=== PATIENT | female | born 1940 | race Caucasian/White ===

== ENCOUNTER 2017-04-24 20:33 | Inpatient (IN) | payer MEDICARE ==
[2017-04-24] MEDS ORDERED: diphenhydrAMINE 50 MG/ML VIAL ONE (21:24)
[2017-04-24] MEDS ORDERED: Metoclopramide HCl 10 MG/2 ML VIAL ONE (21:24)
--- NOTE | 2017-04-24 22:01 | RAD ---
AP VIEW OF THE CHEST 04/24/17 INDICATION: Chest pain and heaviness. IMPRESSION: No acute cardiopulmonary abnormality. Examination is not appreciably changed from the comparison date d 05/01/12. POS: [facility]
[2017-04-24 22:27] LABS: Band 12 % (5-11); Hematocrit 39.2 % (36.0-47.0); Mean Platelet Volume 7.5 fL (7.4-10.4); Neutrophil 71 % (42-75); Red Blood Cell (RBC) Count 4.67 mill/uL (4.20-5.40); White Blood Cell (WBC) Count 12.6 thou/uL (4.8-10.8)
[2017-04-24 22:32] LABS: Lactic Acid - Sepsis 1.5 mmol/L (0.5-2.2)
[2017-04-24 22:39] LABS: ALT (SGPT) 63 U/L (8-55); AST (SGOT) 115 U/L (5-34); Alkaline Phosphatase 191 U/L (40-150); Anion Gap 14 mmol/L (10-20); BUN (Urea Nitrogen) 21 mg/dL (9.8-20.1); Bilirubin, Total 1.1 mg/dL (0.2-1.2); CK (CPK) 22 U/L (29-168); Calc. Creatinine Clearance 0 mL/min (70-130); Calcium 8.8 mg/dL (7.8-10.44); Carbon Dioxide 22 mmol/L (23-31); Chloride 97 mmol/L (98-107); Estimated GFR-MDRD 55; Globulin 3.6 g/dL (2.4-3.5); Lipase 4 U/L (8-78); Protein, Total 6.8 g/dL (6.0-8.3)
[2017-04-24 22:41] LABS: Troponin I Less than 0.010 ng/mL (< 0.028)
[2017-04-24 23:44] LABS: Bilirubin Small (Negative); Blood, Urine Moderate (Negative); Glucose, Urine (Dipstick) Negative (Negative); Ketone, Urine Negative (Negative); Nitrite Negative (Negative); Protein, Urine (Dipstick) 30 mg/dL (Neg-Trace)
[2017-04-24] MEDS ORDERED: Azithromycin 500 MG VIAL ONE (23:45)
[2017-04-24 23:47] LABS: Bacteria/HPF 4+ HPF (None Seen); Renal Epithelial 0-3 HPF (0-3); Squamous Epithelial 0-3 HPF (0-3); WBC/HPF 21-50 HPF (0-3)
[2017-04-25 02:34] VITALS: BMI 34.6
[2017-04-25] MEDS ORDERED: Senokot 8.6 MG TAB PO PRN (03:07)
[2017-04-25] MEDS ORDERED: Ondansetron HCl/PF 4 MG/2 ML Vial IVP PRN (03:07)
[2017-04-25] MEDS ORDERED: Ondansetron ODT 4 MG TAB PO PRN (03:07)
[2017-04-25] MEDS ORDERED: Nitroglycerin 0.4 MG TAB (25 Tab Bottle) PO PRN (03:07)
--- NOTE | 2017-04-25 04:04 | HP ---
DATE OF ADMISSION: 04/24/2017 CHIEF COMPLAINT: Chest discomfort with generalized weakness of 2 weeks' duration. PRIMARY CARE PHYSICIAN: Charly Tompkins MD HISTORY OF PRESENT ILLNESS: The patient is a 76-year-old female with COPD, hyperlipidemia, and depre ssion who presented to the emergency room with above complaints. Over the last two weeks, the patient developed gradual worsening of chest discomfort that was pressur e-like, without any aggravating or relieving factor. It was more or less constant. She denies any a ssociated lightheadedness, dizziness, palpitations, nausea, or vomiting. Over the last two weeks, the patient also has generalized weakness with fatigue. She has also lost h er appetite. She has some urinary urgency; however, denies any hematuria or dysuria. She also has s ome frontal headache that is intermittent. No double vision, blurring of vision, facial asymmetry, w eakness, numbness of any of the extremities reported. In the emergency room, initial vital signs showed temperature 99.8, respirations 20, pulse of 90 with blood pressure of 145/70. O2 saturation was 94% on room air. EKG showed sinus rhythm with left axi s deviation without significant ST-T wave changes. Chest x-ray was negative for infiltrate. Her CBC showed WBC of 12.6 with 12% bandemia. Sodium was 129 with abnormal LFTs. Urinalysis showed 21-50 w bc's with 4+ bacteria. Urine and blood cultures were sent. She received Rocephin, azithromycin, Reg mono, Benadryl with IV fluids in the emergency room. PAST MEDICAL HISTORY: 1. Chronic obstructive pulmonary disease. 2. Hyperlipidemia, not tolerating statins. 3. Depression. 4. Obesity with a BMI of 34.6. PAST SURGICAL HISTORY: 1. Cholecystectomy. 2. ERCP. 3. Partial hysterectomy in 1965. 4. Colonoscopy in 2008. 5. Left shoulder surgery in 2011. 6. EGD and colonoscopy in 2012. 7. Left breast lumpectomy in 1965. ALLERGIES: The patient cannot tolerate STATINS due to myalgias, ZETIA causes myalgias. She cannot t olerate CODEINE. MANDY causes headache. CURRENT HOME MEDICATIONS: Cetirizine 10 mg daily, Lexapro 20 mg daily, AZO Bladder Control daily. SOCIAL HISTORY: Patient is a former smoker, quit in 1975. No alcohol or drug use. She is retired. FAMILY HISTORY: Father with prostate cancer. Mother with ALS. One family member with lung cancer. Diabetes runs in her family. One sister with malignancy. REVIEW OF SYSTEMS: The following complete review of systems was negative, unless otherwise mentioned in the HPI or below: Constitutional: Weight loss or gain, ability to conduct usual activities. Sk in: Rash, itching. Eyes: Double vision, pain. ENT/Mouth: Nose bleeding, neck stiffness, pain, te nderness. Cardiovascular: Palpitations, dyspnea on exertion, orthopnea. Respiratory: Shortness of breath, wheezing, cough, hemoptysis, fever or night sweats. Gastrointestinal: Poor appetite, abdom inal pain, heartburn, nausea, vomiting, constipation, or diarrhea. Genitourinary: Urgency, frequenc y, dysuria, nocturia. Musculoskeletal: Pain, swelling. Neurologic/Psychiatric: Anxiety, depressio n. Allergy/Immunologic: Skin rash, bleeding tendency. PHYSICAL EXAMINATION: VITAL SIGNS: As discussed above. GENERAL: A 76-year-old female in no apparent distress. Feels generally fatigued. Denies any suicid al ideation. HEENT: Head: Atraumatic, normocephalic. Sclerae are anicteric. Moist mucous membranes. No oral l esion. NECK: Supple, no JVD appreciated. No carotid bruit. LUNGS: Clear to auscultation bilaterally. HEART: S1, S2 present. Regular rate and rhythm. No murmurs, rubs, or gallops appreciated. ABDOMEN: Soft, nontender, bowel sounds present. EXTREMITIES: No edema or calf tenderness. NEUROLOGIC: Grossly nonfocal, moves all four extremities. PSYCHIATRY: Alert, awake, oriented x3. SKIN: Warm and dry. LYMPH NODES: No palpable lymph nodes in the neck. PERIPHERAL VASCULAR: Radial pulses palpable bilaterally. MUSCULOSKELETAL: No joint swelling or tenderness. LABORATORY FINDINGS: As discussed above, troponins were negative. AST was 115, ALT 63, alkaline yandy sphatase is 191, albumin of 3.2. Urinalysis showed 21-50 wbc's with 4+ bacteria. EKG and chest x-ra y by my review as discussed above. IMPRESSION: 1. Sepsis secondary to urinary tract infection. 2. Chest discomfort, rule out acute coronary syndrome. 3. Hyponatremia with sodium 129, probably secondary to dehydration and poor appetite, rule out adren al insufficiency. 4. History of vitamin D deficiency. 5. Abnormal liver function tests of unclear etiology. 6. Mild protein-calorie malnutrition. 7. Depression without any suicidal ideation. 8. History of cholecystectomy. 9. Obesity with a BMI of 34.6. 10. Chronic obstructive pulmonary disease. 11. Hyperlipidemia. The patient cannot tolerate statins. PLAN: The patient will be monitored on the telemetry unit. Echocardiogram will be obtained for ches t discomfort. We will continue empiric antibiotics. Blood and urine cultures have been sent. Her r ight upper quadrant ultrasound will be done for abnormal LFTs. We will rule out adrenal insufficienc y. We will start her on vitamin D supplementation. Plan of care was discussed with the patient. She stated understanding. CODE STATUS: FULL CODE. SURROGATE DECISION MAKER: The patient makes her own decisions with the help of her family.
[2017-04-25] MEDS: Sodium Chloride 0.9% 1,000 ML IV SCH ×2 (04:26→15:11)
[2017-04-25 04:59] LABS: #Eosinphils 0.1 thou/uL (0.0-0.7); #Lymphocytes 1.4 thou/uL (1.20-3.40); #Monocytes 0.8 thou/uL (0.11-0.59); #Neutrophils 7.8 thou/uL (1.40-6.50); %Basophils 0.2 % (0.0-1.0); %Eosinophils 0.9 % (0.0-10.0); %Lymphocytes 14.1 % (21.0-51.0); %Monocytes 8.2 % (0.0-10.0); Hematocrit 37.4 % (36.0-47.0); Mean Platelet Volume 7.2 fL (7.4-10.4); Red Blood Cell (RBC) Count 4.44 mill/uL (4.20-5.40); White Blood Cell (WBC) Count 10.2 thou/uL (4.8-10.8)
[2017-04-25 05:13] LABS: ALT (SGPT) 55 U/L (8-55); AST (SGOT) 85 U/L (5-34); Alkaline Phosphatase 165 U/L (40-150); Anion Gap 10 mmol/L (10-20); BUN (Urea Nitrogen) 20 mg/dL (9.8-20.1); Bilirubin, Total 0.9 mg/dL (0.2-1.2); Calc. Creatinine Clearance 68 mL/min (70-130); Calcium 8.3 mg/dL (7.8-10.44); Carbon Dioxide 25 mmol/L (23-31); Chloride 100 mmol/L (98-107); Estimated GFR-MDRD 49; Globulin 3.1 g/dL (2.4-3.5); Magnesium 2.2 mg/dL (1.6-2.6); Phosphorus 2.8 mg/dL (2.3-4.7)
[2017-04-25 05:18] LABS: Troponin I Less than 0.010 ng/mL (< 0.028)
[2017-04-25] MEDS: Cyanocobalamin (Vitamin B-12) 1,000 MCG TAB PO SCH (08:35)
[2017-04-25] MEDS: Aspirin 325 MG TAB PO SCH (08:35)
[2017-04-25] MEDS: Calcium Carbonate + Vit D 1 TAB PO SCH ×2 (08:35→17:19)
[2017-04-25] MEDS: cefTRIAXone\\ROCEPHIN 1 GM in Syringe 10 ML IVPB SCH (08:38)
[2017-04-25] MEDS: Famotidine 20 MG TAB PO SCH ×2 (09:43→21:59)
[2017-04-25] MEDS: Folic Acid 1 MG TAB PO SCH (09:43)
--- NOTE | 2017-04-25 09:57 | ULT ---
GALLBLADDER ULTRASOUND: HISTORY: Right upper quadrant pain. FINDINGS: Real-time images of the right upper quadrant demonstrate the gallbladder to have been removed. The c ommon duct is 5 mm. The liver parenchyma is very heterogeneous and of increased echogenicity. I do not see any focal discrete mass. This is probably related to fatty change. The right kidney is norm al in size and not obstructed. The pancreas is partially obscured. IMPRESSION: 1. Postop cholecystectomy change. 2. Fatty changes of the liver. POS: [facility]
[2017-04-25] MEDS ORDERED: Acetaminophen 325 MG TAB PO PRN (10:27)
--- NOTE | 2017-04-25 10:32 | PDOC.PN ---
- Subjective Encounter Start Date: 04/25/17 Encounter Start Time: 10:29 Ms. Jaffe was seen today in follow-up of generalized weakness, and UTI. She says she feels about the same today, as yesterday. She also continues to complain of a headache, and chest pain, which she says feels like someone is sitting on her chest. she says she gets this feeling when she takes in a deep breath. she says she never completed a stress test before. - Objective Resuscitation Status: Resuscitation Status FULL:Full Resuscitation MAR Reviewed: Yes Vital Signs & Weight: Vital Signs (12 hours) Temp Pulse Resp BP Pulse Ox 04/25/17 08:00 98.8 F 91 18 101/60 93 L 04/25/17 02:48 98.6 F 80 20 97 04/25/17 01:00 98.6 F 80 20 151/70 H 97 Weight Weight 220 lb 14.4 oz I&O: 04/24/17 04/25/17 04/26/17 06:59 06:59 06:59 Intake Total 731 240 Balance 731 240 Result Diagrams: 04/25/17 04:43 04/25/17 04:43 Phys Exam - Physical Examination HEENT: PERRLA Respiratory: no wheezing, no rales, no rhonchi, clear to auscultation bilateral Cardiovascular: RRR, no significant murmur Gastrointestinal: soft, non-tender, positive bowel sounds Musculoskeletal: no edema Dx/Plan (1) UTI (urinary tract infection) Status: Acute (2) Hyponatremia Code(s): E87.1 - HYPO-OSMOLALITY AND HYPONATREMIA Status: Acute (3) Generalized weakness Code(s): R53.1 - WEAKNESS Status: Acute (4) Elevated TSH Code(s): R94.6 - ABNORMAL RESULTS OF THYROID FUNCTION STUDIES Status: Acute (5) Chest pain Code(s): R07.9 - CHEST PAIN, UNSPECIFIED Status: Acute - Plan * UTI- continue Rocephin pending culture results * Hyponatremia- this is improving with hydration- will re-check serum sodium level in the AM * Elevated LFT's- this may be due to fatty liver- will follow-up with Hepatitis panel * Generalized weakness- likely from UTI, and Hyponatremia- however her TSH is elevated, and will need to follow this up with a free T4 * Chest pain- symptoms are very atypical- will F/U on the Echo results, and will also obtain a stress test * PT
[2017-04-25] MEDS ORDERED: traMADol HCl 50 MG TAB PO PRN (10:39)
[2017-04-25] MEDS ORDERED: Potassium Chloride 20 MEQ TAB PO SCH (10:45)
[2017-04-25 11:07] LABS: ALT (SGPT) 56 U/L (8-55); AST (SGOT) 88 U/L (5-34); Alkaline Phosphatase 165 U/L (40-150); Bilirubin, Direct 0.6 mg/dL (0.1-0.3); Bilirubin, Total 0.8 mg/dL (0.2-1.2)
[2017-04-25 17:02] LABS: Osmolality, Urine 325 mOsm/kg (300-900)
[2017-04-25 17:18] LABS: Sodium, Urine Less than 20 mmol/L (Not Available)
[2017-04-26] MEDS: Sodium Chloride 0.9% 1,000 ML IV SCH ×3 (01:39→11:44)
[2017-04-26 06:02] LABS: ALT (SGPT) 45 U/L (8-55); AST (SGOT) 49 U/L (5-34); Alkaline Phosphatase 146 U/L (40-150); Anion Gap 8 mmol/L (10-20); BUN (Urea Nitrogen) 13 mg/dL (9.8-20.1); Bilirubin, Total 0.5 mg/dL (0.2-1.2); Calc. Creatinine Clearance 88 mL/min (70-130); Calcium 8.2 mg/dL (7.8-10.44); Carbon Dioxide 25 mmol/L (23-31); Chloride 110 mmol/L (98-107); Estimated GFR-MDRD 64; Globulin 2.9 g/dL (2.4-3.5); Protein, Total 5.7 g/dL (6.0-8.3)
[2017-04-26 06:18] LABS: Band 3 % (5-11); Hematocrit 34.4 % (36.0-47.0); Mean Platelet Volume 7.2 fL (7.4-10.4); Neutrophil 67 % (42-75); Red Blood Cell (RBC) Count 4.06 mill/uL (4.20-5.40); White Blood Cell (WBC) Count 9.6 thou/uL (4.8-10.8)
[2017-04-26] MEDS ORDERED: FLU VACC TS2017-18 (>65YR) 0.5 ML SYRINGE IM ONE (09:00)
[2017-04-26] MEDS: Cyanocobalamin (Vitamin B-12) 1,000 MCG TAB PO SCH (11:17)
[2017-04-26] MEDS: Aspirin 325 MG TAB PO SCH (11:17)
[2017-04-26] MEDS: Famotidine 20 MG TAB PO SCH (11:17)
[2017-04-26] MEDS: Folic Acid 1 MG TAB PO SCH (11:17)
[2017-04-26] MEDS: Calcium Carbonate + Vit D 1 TAB PO SCH (11:18)
[2017-04-26 11:59] VITALS: TEMP 97.4
--- NOTE | 2017-04-26 12:05 | PDOC.PN ---
- Subjective Encounter Start Date: 04/26/17 Encounter Start Time: 12:03 Ms. Jaffe was seen today in follow-up of generalized weakness. She is feeling much better. - Objective Resuscitation Status: Resuscitation Status FULL:Full Resuscitation MAR Reviewed: Yes Vital Signs & Weight: Vital Signs (12 hours) Temp Pulse Resp BP Pulse Ox 04/26/17 11:58 97.4 F L 78 20 188/91 H 97 04/26/17 08:00 98.6 F 73 20 04/26/17 07:58 98.6 F 73 20 171/78 H 96 04/26/17 05:13 98.4 F 74 16 136/61 97 04/26/17 04:31 96 04/26/17 01:16 98.7 F 75 18 149/60 H 97 Weight Weight 224 lb 9.6 oz I&O: 04/25/17 04/26/17 04/27/17 06:59 06:59 06:59 Intake Total 731 3377 Balance 731 3377 Result Diagrams: 04/26/17 04:57 04/26/17 04:57 Phys Exam - Physical Examination HEENT: PERRLA Respiratory: no wheezing, no rales, no rhonchi, clear to auscultation bilateral Cardiovascular: RRR, no significant murmur Gastrointestinal: soft, non-tender, positive bowel sounds Musculoskeletal: no edema Dx/Plan (1) UTI (urinary tract infection) Status: Acute (2) Hyponatremia Code(s): E87.1 - HYPO-OSMOLALITY AND HYPONATREMIA Status: Acute (3) Generalized weakness Code(s): R53.1 - WEAKNESS Status: Acute (4) Elevated TSH Code(s): R94.6 - ABNORMAL RESULTS OF THYROID FUNCTION STUDIES Status: Acute (5) Chest pain Code(s): R07.9 - CHEST PAIN, UNSPECIFIED Status: Acute - Plan * UTI- urine culture and sensitivity results were noted * Stress test and Echo results were reviewed * She is stable for discharge home today.
[2017-04-26] MEDS: cefTRIAXone\\ROCEPHIN 1 GM in Syringe 10 ML IVPB SCH (12:53)
--- NOTE | 2017-04-26 13:12 | NM ---
MYOCA RDIAL PERFUSION EVALUATION: DATE: 04/25/17 INDICATION: Chest pain. RADIOPHARMACEUTICAL: 28.9 mCi technetium-99m sestamibi with stress and 28.3 mCi technetium-99m sestamibi with rest. FINDINGS: There is some activity seen within the left hepatic lobe that slightly limits evaluation of the mid t o basal inferior wall of the left ventricle, particularly on the stress images. There is a mild amoun t of diminished activity seen within the left ventricular apex likely related to physiologic thinning . No definite reversible myocardial perfusion defect is evident. There was normal wall motion and thi ckening. Estimated LVEF is at 58%. IMPRESSION: Probably normal myocardial perfusion evaluation: 1. No definite scintigraphic evidence of reversible myocardial ischemia. 2. There is some artifact from activity within the liver that slightly diminishes radiotracer visual ization within the inferior wall of the mid to basal left ventricle. Normal wall motion and thickenin g. 3. Estimated LVEF of 58%. POS: [facility]
[2017-04-26 13:23] VITALS: BP 118/69
[2017-04-26] MEDS ORDERED: Regadenoson 0.4 MG/5 ML SYRINGE ONE (14:13)
--- NOTE | 2017-04-26 14:17 | DIS ---
PRIMARY CARE PHYSICIAN: Dr. Charly Tompkins DATE OF DISCHARGE: 04/26/2017 DISCHARGE DISPOSITION: Home. PRIMARY DISCHARGE DIAGNOSES: 1. Urinary tract infection with sepsis 2. Generalized weakness. 3. Chronic obstructive pulmonary disease. 4. Hyperlipidemia. 5. Depression. 6. Obesity with a body mass index of 35.2. PROCEDURES DONE DURING ADMISSION: The patient had an echocardiogram which revealed a normal ejection fraction at 55-60%. There was some E to A flow reversal noted suggestive of diastolic dysfunction. The patient also had a nuclear stress test which showed no reversible defect. The ejection fraction was estimated at 58%. There was some artifact and diminished radioactive uptake in the inferior wall as well as the mid basilar segment of the left ventricle which is thought to be due to attenuation. DISCHARGE MEDICATIONS: Levaquin 500 mg 1 p.o. daily for 3 days. She is to continue Lexapro 20 mg daily, and Zyrtec 10 mg daily. CODE STATUS: FULL CODE. ALLERGIES: CODEINE. HOSPITAL COURSE: Ms. Jaffe is a pleasant 76-year-old female who presented to the emergency room complaining of some chest discomfort and feeling generally weak. She was found to have a urinary tract infection. The urine culture grew E. coli which was sensitive to quinolones. She was placed on IV antibiotics. The E. coli was sensitive to Rocephin. She was changed to Levaquin at the time of discharge and can continue on Levaquin for the next 3 days. Her blood pressure was also noted to be somewhat labile with readings as high as 170 systolic. I discussed with the patient that she should keep a close eye on her blood pressure and discuss this with her primary care physician, especially given the diastolic dysfunction on echo, she may likely need an antihypertensive medication added to her regimen. She was also found to have an elevated TSH at 5.26, but her free T4 was normal. This will also need to be closely monitored in the outpatient setting as well. The patient was therefore stable for discharge on 04/26/2017. NAHUM
--- NOTE | 2017-04-27 12:53 | STRESS ---
Acquisition Time: 2017-04-26 09:15:41 Total Exercise Time: 00:01:00 Test Indications: CHEST PAIN Medications: Protocol: LEXISCAN Max HR: 102 BPM 71% of Pred: 143 BPM Max BP: 132/062 mmHG Max Work Load: 1.0 METS RESTING ECG: NORMAL SINUS RHYTHM AT 65 BPM SYMPTOMS: NONE NORMAL BP RESPONSE ECTOPY: OCCASIONAL PVC'S ECG STRESS: NO SIGNIFICANT CHANGES INTERPRETATION: NEGATIVE ECG/AWAIT NUCLEAR IMAGES FOR DEFINITIVE DIAGNOSIS Confirmed by DR. lAe CORTES ([id number]), editor index GIRISH COLES ([id number]) on 04/27/2017 12:53:30 PM Referred By: Marco LÓPEZ Confirmed By:DR. Ale CORTES
--- NOTE | 2017-04-27 19:58 | PQF ---
RUFINA CANTU TONI MD [id number] [facility] – [place], [id number] CLINICAL DOCUMENTATION CLARIFICATION FORM: POST DISCHARGE Addendum to original discharge summary date: ____ Late entry note date: __ DATE: 04/27/17 ATTN: Mihir Estrada MD Please exercise your independent, professional judgment in responding to the clarification form. Clinical indicators are provided on the bottom of this form for your review H & P pg. 3 Impression: #1 Sepsis secondary to uti H & P pg. 2 ....vital signs showed temperature 99.8, respirations 20, pulse of 90 with blood pressure of 145/70. .....Her CVC showed WBC of 12.6 with 12% bandemia. Please check appropriate box(s): [ X ] Sepsis due to: (Pna, UTI, gangrenous gall bladder, etc.) ___UTI Due to: [ ] Device (please specify) [ ] Implant [ ] Graft [ ] Infusion [ ] SIRS due to non-infectious process (please specify etiology) [ X ] with organ dysfunction [ ] without organ dysfunction [ ] Severe sepsis with acute organ dysfunction of: (Examples: respiratory failure, encephalopathy, acute kidney failure, other) [ ] Localized infection without sepsis [ ] Other diagnosis [ ] Unable to determine In addition, please specify: Present on Admission (POA): [ X ] Yes [ ] No [ ] Unable to determine For continuity of documentation, please document condition throughout progress notes and discharge summary. Thank You. CLINICAL INDICATORS - SIGNS / SYMPTOMS / LABS Altered mental status Fever or hypothermia (<96.8 F/36 C or > 100.4 F/38C) Respiratory rate >22/min, Hypoxemia, SBP <100mmHg Metabolic acidosis Lactic Acid >2mmol/L, Increase BUN/[employer] Specialist, decrease GFR, coag abnormalities, thrombocytopenia-plts <100k Oliguria Shock-hypotension resistant to IV fluid boluses WBC count (>12,000/mm^4 or <4000/mm^3 or 10% neuts, 10% bands) Hyperglycemia in absence of diabetes mellitus Positive blood cultures RISK FACTORS Infection/Bacteremia Pneumonia, UTI, infected wound, gangrenous gall bladder Diabetes or Cancer Surgery / surgical instrumentation / trauma Ruptured/perforated bowel, ruptured appendix Immunosuppression Advancing Age TREATMENTS: Initiation Sepsis Protocol ICU Daily CBC Blood/sputum/wound cultures ID Consult IV antibiotics - broad spectrum IV ?uids Vasopressors, meds (This form is maintained as a part of the permanent medical record) 2014 [employer]. All Rights Reserved Obdani [email or web address] [phone] NAHUM
== END 2017-04-26 14:45 | disposition home health service (06) | DRG 872 ==
LOC: ERS 20:33 → 2SE 23:20
PROVIDERS: ADMIT Internal Medicine; ATTEND Internal Medicine
PROC: 4A02XM4 Measurement of Cardiac Total Activity, External Approach (ICD-10-PCS; principal; 2017-04-25)
DX: A41.51 Sepsis due to Escherichia coli [E. coli] (principal); N39.0 Urinary tract infection, site not specified; J44.9 Chronic obstructive pulmonary disease, unspecified; E44.1 Mild protein-calorie malnutrition; E87.1 Hypo-osmolality and hyponatremia; E86.0 Dehydration; F32.9 Major depressive disorder, single episode, unspecified; E78.5 Hyperlipidemia, unspecified; E66.9 Obesity, unspecified; R65.20 Severe sepsis without septic shock; R94.5 Abnormal results of liver function studies; Z68.34 Body mass index [BMI] 34.0-34.9, adult; Z88.5 Allergy status to narcotic agent; Z88.8 Allergy status to other drugs, medicaments and biological substances; Z87.891 Personal history of nicotine dependence; Z83.3 Family history of diabetes mellitus; Z80.42 Family history of malignant neoplasm of prostate; Z80.1 Family history of malignant neoplasm of trachea, bronchus and lung; Z82.0 Family history of epilepsy and other diseases of the nervous system
CPT/HCPCS: 36415; 71010; 76705; 78452; 80053; 81003; 81015; 82533; 82553; 82607; 82746; 83605; 83690; 83735; 83930; 83935; 84100; 84300; 84439; 84443; 84484; 85025; 87040; 87077; 87086; 87186; 90471; 90682; 90732; 93005; 93017; 93306; 96361; 96365; 96367; 96375; A4216; A9500; G0008; G0009; G8978-GP-CK; G8979-GP-CK; G8980-GP-CK; J0456; J0696; J1200; J2765; J2785; Q2036

== ENCOUNTER 2017-06-14 18:00 | Outpatient (CLI) | payer MEDICARE | END 2017-06-14 18:01 | disposition home or self-care (01) | LOC: SLEEPLAB 18:00 | PROVIDERS: ATTEND Family Medicine | DX: G47.33 Obstructive sleep apnea (adult) (pediatric) (principal); E66.9 Obesity, unspecified; F41.9 Anxiety disorder, unspecified; J44.9 Chronic obstructive pulmonary disease, unspecified; I10 Essential (primary) hypertension; R09.02 Hypoxemia | CPT/HCPCS: 95806 ==

== ENCOUNTER 2017-10-28 15:18 | Outpatient (CLI) | payer MEDICARE | END 2017-10-28 15:19 | disposition home or self-care (01) | LOC: BICMAMMO 15:18 | PROVIDERS: ATTEND Family Medicine | DX: M85.89 Other specified disorders of bone density and structure, multiple sites (principal) | CPT/HCPCS: 77080 ==

== ENCOUNTER 2017-11-14 20:30 | Outpatient (CLI) | payer MEDICARE | END 2017-11-14 20:31 | disposition home or self-care (01) | LOC: SLEEPLAB 20:30 | PROVIDERS: ATTEND Family Medicine | DX: G47.33 Obstructive sleep apnea (adult) (pediatric) (principal); R53.83 Other fatigue; G31.84 Mild cognitive impairment of uncertain or unknown etiology; E66.9 Obesity, unspecified; R06.83 Snoring; F41.8 Other specified anxiety disorders; I10 Essential (primary) hypertension; G47.00 Insomnia, unspecified | CPT/HCPCS: 95810 ==

== ENCOUNTER 2018-08-05 14:51 | Emergency (ER) | payer MEDICARE ==
[2018-08-05] MEDS ORDERED: Lidocaine 1% w/Epinephrine 1:100K 20 ML VIAL ONE (15:05)
[2018-08-05] MEDS ORDERED: Bacitracin Zinc 1 Packet ONE (15:28)
== END 2018-08-05 15:42 | disposition home or self-care (01) ==
LOC: SCSER 14:51
DX: S51.811A Laceration without foreign body of right forearm, initial encounter (principal); F41.9 Anxiety disorder, unspecified; F32.9 Major depressive disorder, single episode, unspecified; E78.2 Mixed hyperlipidemia; W18.30XA Fall on same level, unspecified, initial encounter
CPT/HCPCS: 12002; J2001

== ENCOUNTER 2018-08-19 13:34 | Emergency (ER) | payer MEDICARE | END 2018-08-19 13:57 | disposition home or self-care (01) | LOC: SCSER/OP 13:34 | DX: S51.811D Laceration without foreign body of right forearm, subsequent encounter (principal); W19.XXXD Unspecified fall, subsequent encounter ==

== ENCOUNTER 2018-09-08 11:17 | Outpatient (CLI) | payer MEDICARE ==
--- NOTE | 2018-09-08 13:06 | RAD ---
2 VIEWS CHEST: Date: 09/08/18 PROVIDED CLINICAL HISTORY: Cough. FINDINGS: Comparison with 04/24/17. Cardiac and mediastinal silhouette is within normal limits. No focal consolidation, pleural fluid, or pneumothorax apparent. Degenerative changes are seen involving the thoracic spine. IMPRESSION: No evidence for an acute cardiopulmonary process. POS: [facility]
== END 2018-09-08 11:18 | disposition home or self-care (01) ==
LOC: SCSRAD 11:17
PROVIDERS: ATTEND Family Medicine
DX: J44.9 Chronic obstructive pulmonary disease, unspecified (principal); R05 Cough
CPT/HCPCS: 71046

== ENCOUNTER 2023-01-21 09:13 | Outpatient (CLI) | payer MEDICARE | END 2023-01-21 09:14 | disposition home or self-care (01) | LOC: BICMAMMO 09:13 | PROVIDERS: ATTEND Internal Medicine Hematology & Oncology | DX: Z13.820 Encounter for screening for osteoporosis (principal); C50.811 Malignant neoplasm of overlapping sites of right female breast; M85.851 Other specified disorders of bone density and structure, right thigh; M85.852 Other specified disorders of bone density and structure, left thigh; T38.6X5A Adverse effect of antigonadotrophins, antiestrogens, antiandrogens, not elsewhere classified, initial encounter | CPT/HCPCS: 77080 ==

== ENCOUNTER 2024-04-13 12:30 | Outpatient (CLI) | payer MEDICARE | END 2024-04-13 12:31 | disposition home or self-care (01) | LOC: SCSRAD 12:30 | PROVIDERS: ATTEND Neurological Surgery | DX: S32.019D Unspecified fracture of first lumbar vertebra, subsequent encounter for fracture with routine healing (principal); M43.8X6 Other specified deforming dorsopathies, lumbar region | CPT/HCPCS: 72100 ==

== ENCOUNTER 2024-04-17 14:19 | Outpatient (CLI) | payer MEDICARE | END 2024-04-17 14:20 | disposition home or self-care (01) | LOC: SCSRAD 14:19 | PROVIDERS: ATTEND Family Medicine | DX: M25.532 Pain in left wrist (principal); M18.11 Unilateral primary osteoarthritis of first carpometacarpal joint, right hand ==

== ENCOUNTER 2024-06-19 15:25 | Outpatient (CLI) | payer MEDICARE | END 2024-06-19 15:26 | disposition home or self-care (01) | LOC: RAD 15:25 | PROVIDERS: ATTEND Neurological Surgery | DX: S32.011D Stable burst fracture of first lumbar vertebra, subsequent encounter for fracture with routine healing (principal) | CPT/HCPCS: 72100 ==

== ENCOUNTER 2025-02-05 13:14 | Outpatient (CLI) | payer OTHER | END 2025-02-05 13:15 | disposition home or self-care (01) | LOC: BICMAMMO 13:14 | PROVIDERS: ATTEND Internal Medicine Hematology & Oncology | DX: M81.0 Age-related osteoporosis without current pathological fracture (principal); C50.811 Malignant neoplasm of overlapping sites of right female breast; M85.851 Other specified disorders of bone density and structure, right thigh; M85.852 Other specified disorders of bone density and structure, left thigh | CPT/HCPCS: 77080 ==